=== PATIENT | female | born 1955 | race Two or more races ===

== ENCOUNTER 2024-11-24 12:15 | Emergency (ER) | payer OTHER ==
[~2024-11-24] VITALS: Ht 167.6 cm; Wt 80.7 kg
[2024-11-24] MEDS ORDERED: HYDROCHLOROTHIA25 MG PO (12:33)
[2024-11-24] MEDS ORDERED: LOSARTAN POTASS50 MG PO (12:33)
[2024-11-24] MEDS ORDERED: 0.9 % SODIUM CHLORIDE 1,000 ML IV ONE (13:00)
[2024-11-24 14:09] LABS: ALBUMIN 3.6 gm/dL (3.4-5.0); BILIRUBIN TOTAL 0.53 mg/dL (0.3-1.2); CALCIUM 8.9 mg/dL (8.5-10.1); CREATININE SERUM 1.07 mg/dL (0.55-1.02); GFR 50.84; GLOBULINA 3.8 G/DL (2.4-3.5); POTASSIUM 3.29 mEq/L (3.5-5.1); TOTAL PROTEIN 7.4 gm/dL (6.4-8.2)
[2024-11-24] MEDS ORDERED: LEVALBUTEROL HCL 1.25 MG/3 ML SOLUTION IH ONE ×2 (14:11→14:15)
[2024-11-24] MEDS ORDERED: METHYLPREDNISOLONE SOD SUCC 125 MG VIAL IV ONE (14:15)
[2024-11-24] MEDS ORDERED: METHYLPREDNISOLONE SOD SUCC 125 MG VIAL ONE (14:18)
[2024-11-24 14:31] LABS: INR 1.04; PARTIAL THROMBOPLASTIN TIME 27.6 SECONDS (22.0-34.0); PROTHROMBIN TIME 11.3 SECONDS (9.0-11.5)
[2024-11-24 14:40] LABS: HEMATOCRIT 39.2 % (36.0-45.00); HEMOGLOBIN 13.3 g/dL (12.0-15.00); MEAN CELL VOLUME 94.3 fL (80.00-100.00); MEAN CORPUSCULAR HEMOGLOBIN 32.1 pg (27.00-32.0); PLATELET COUNT 175 K/uL (150-450); RED BLOOD COUNT 4.16 M/uL (4.00-6.00); RED CELL DISTRIBUTION WIDTH 13.7 % (11.5-14.5)
[2024-11-24] MEDS ORDERED: OSEL75CA PO (15:35)
[2024-11-24] MEDS ORDERED: PEPCID AC20 MG PO (15:35)
== END 2024-11-24 15:43 | disposition home or self-care (01) ==
LOC: ER 12:15
PROVIDERS: General Practice
DX: R55 Syncope and collapse (principal); J10.1 Influenza due to other identified influenza virus with other respiratory manifestations; Z88.2 Allergy status to sulfonamides
CPT/HCPCS: 36415; 70450; 71045; 93005; 94640; 96365; 99284; J7030